=== PATIENT | male | born 1960 | race Caucasian/White ===

== ENCOUNTER 2019-10-07 04:50 | Emergency (ER) | payer SELFPAY ==
[2019-10-07 05:00] VITALS: BP 0/0; PULSE 0; RESP 0
--- NOTE | 2019-10-07 05:14 | ED.CPR ---
HPI - CPR General Stated Complaint: cardiac arest Time Seen by Provider: 10/07/19 04:50 Source: EMS Mode of arrival: EMS Limitations: clinical condition History of Present Illness HPI narrative: Patient presented after collapsing at home. friend who was there at the home called EMS immediately. They gave her instructions on what to do concerned CPR. EMS arrived and found the patient in asystole continued CPR established I 0 and gave epinephrine x2 with normal saline. They continued CPR and ACLS protocol. EMS reported there were no spontaneous respirations no spontaneous heart rate asystole on the monitor. MD complaint: collapsed during activity Onset (ago): minute(s) (35) Timing confirmed by: other (Girlfriend) Place: home Bystander CPR performed: Yes AED applied by bystander/rn first assist: No Shock advised: No Downtime before ACLS arrival (mins): 15 Initial findings in the field: unresponsive ROSC in the field: No Associated injuries: No Associated symptoms: chest pain Treatments prior to arrival: BMV, chest compressions and epinephrine mgs # (2) Related Data Home Medications Medication Instructions Recorded Confirmed No Home Medications 10/07/19 10/07/19 Review of Systems Review of Systems: ROS unobtainable: unobtainable due to mental condition PMFSH Comments unable to obtain due to patient condition. Exam Const: General: patient obtunded Nutritional Appearance: obese centrally obese Orientation/consciousness: patient obtunded HENMT: Head: normal to inspection Eyes: Pupils: Dilated pupils bilaterally and Fixed pupils bilaterally Neck: Neck: normal visual inspection Chest: Chest palpation & inspection: No Pacemaker present Resp: Effort & Inspection: abnormal respiratory pattern apneic pattern Auscultation: breath sounds absent bilateral Cardio: Rate: abnormal rate and other Rhythm: abnormal rhythm Peripheral pulses: other (No pulses) Skin: General skin exam: mottling and pallor (Cyanotic) Neuro: General: patient obtunded Course Course Emergency Course: Patient presented after being in asystole for 35 minutes in the field. CPR in progress by EMT. Unable to establish IV access I/0 had been placed With normal saline. [id number] ongoing. EMT reports asystole when they arrived on scene. we continued ACLS protocol. Patient received a 3rd dose of epinephrine through the IO. CPR continued. Intubation attempted x2 but unsuccessful. Patient continued to be in asystole. Pupils fixed and dilated. Mottled blue cyanotic from the chest up to the top of the head. Extremities mottled blue and cyanotic. Time of 1458. Vital Signs Vital signs: Vital Signs Blood Pressure 0/0 L 10/07/19 05:22 Blood Pressure 0/0 L 10/07/19 05:22 MDM - Cardiac Arrest/CPR Differential Diagnosis Differential diagnosis: Likely acute massive pulmonary embolism, acute myocardial infarction, cardiac arrest and sudden cardiac Critical Care Time Critical Care Time Critical Care Time: Yes Total Critical Care Time: 10 Discharge Plan Discharge Clinical Impression: Cardiac arrest Patient Disposition: Condition: Prescriptions: No Action No Home Medications RF: 0 Follow-up/Referrals: NON-NURSING STAFF,ADMISSIONS [Primary Care Provider] - Time of Disposition: 04:58
--- NOTE | 2019-10-07 05:16 | PC.NURSE ---
arrival at 0450, see code sheet
--- NOTE | 2019-10-07 05:21 | PC.NURSE ---
0504AM CALLED FRIEND LISTED BY CONTACT CURTIS [phone], ASKING FOR FAMILY INFORMATION. CURTIS STATED I AM IN MY CAR GOING HOME TO [place], HE IS MY COUSINS --I WILL CALL YOU WITH INFO WHEN I GET HOME.
[2019-10-07 05:22] VITALS: BP 0/0
--- NOTE | 2019-10-07 05:31 | PC.NURSE ---
Kostas Hooker called, updated on status
--- NOTE | 2019-10-07 05:37 | PC.NURSE ---
Break Out Worker notified of , will be over to examine body
--- NOTE | 2019-10-07 06:07 | PC.NURSE ---
Son arrived, Dr Mendoza with son reviewing status.
--- NOTE | 2019-10-07 06:15 | PC.NURSE ---
Son, and son's mother in with patient
--- NOTE | 2019-10-07 06:22 | PC.NURSE ---
Son states been having chest pain for while, refused to go to doctor. No medical history has not been to any doctor since kid. Patient has not been out of the [place].
--- NOTE | 2019-10-07 06:44 | PC.NURSE ---
Stacey called from [facility] requesting next of kins information, family with executive manager & MD. Grain Processor will notify when information received
--- NOTE | 2019-10-07 06:51 | PC.NURSE ---
Patient information obtained, and son's...MTS notified.
--- NOTE | 2019-10-07 06:57 | PC.NURSE ---
more family here at bedside of patient
--- NOTE | 2019-10-07 07:15 | PC.NURSE ---
family continues at bed side, coffee offered.
--- NOTE | 2019-10-07 08:09 | PC.NURSE ---
Family at desk requesting patient to stay here until 1pm, caption writer supportive request to call home at 930-10am
--- NOTE | 2019-10-07 08:24 | PC.NURSE ---
family at ER door beating on it, typewriter mechanic & MD with another patient. Very rude about waiting to come in, 10 people in with patient. Knockout Machine Operator request less at a time with no response or acceptance.
--- NOTE | 2019-10-07 09:30 | PC.NURSE ---
called [facility] to come bean picker machine operator patient [phone].
--- NOTE | 2019-10-07 09:52 | PC.NURSE ---
body washed, gown placed on patient, crash cart & room restocked. Home est time arrival 1045am
--- NOTE | 2019-10-07 10:44 | PC.NURSE ---
home, family with director. Release of body forms collected.
[2019-10-07 10:58] VITALS: BP 0/0; PULSE 0; RESP 0
--- NOTE | 2019-10-07 10:59 | PC.NURSE ---
body release to [facility]
== END 2019-10-07 10:59 | disposition expired ==
PROVIDERS: Emergency Provider Emergency Medicine
DX: I46.9 Cardiac arrest, cause unspecified (principal)
CPT/HCPCS: 31500; 36680; 92950; 99283; 99285; J0171